=== PATIENT | female | born 1925 | race Caucasian/White ===

== ENCOUNTER 2016-06-18 18:09 | Inpatient (IN) | payer MEDICARE, MEDICAID ==
[~2016-06-18] VITALS: Ht 147.3 cm; Wt 45.4 kg
[2016-06-18] MEDS ORDERED: IV NS 0.9% 500 ML BAG IV ONE ×2 (18:30→20:00)
[2016-06-18] MEDS ORDERED: IV SET PRIMARY 1 EA INFUS.SET MC ONE ×3 (18:43→21:40)
[2016-06-18] MEDS ORDERED: IV NS 0.9% 500 ML IV ONE ×3 (18:43→21:40)
[2016-06-18 18:51] LABS: BASOPHILS # (AUTO) 0.3 /CMM (0.0-0.2); BASOPHILS % (AUTO) 1.7 % (0.0-2.0); EOSINOPHILS % (AUTO) 0.1 % (0.0-6.0); HEMATOCRIT 40 % (33-45); HEMOGLOBIN 13.5 g/dL (11.5-14.8); LYMPHOCYTES # (AUTO) 0.4 /CMM (0.8-4.8); LYMPHOCYTES % (AUTO) 2.8 % (20.0-44.0); MEAN CORPUSCULAR HEMOGLOBIN 30 PG (26.0-33.0); MEAN CORPUSCULAR HGB CONC 34 g/dl (31.0-36.0); MEAN CORPUSCULAR VOLUME 89 fL (82-100); MONOCYTES # (AUTO) 0.4 /CMM (0.1-1.30); MONOCYTES % (AUTO) 2.7 % (2.0-12.0); NEUTROPHILS # (AUTO) 13.6 /CMM (1.8-8.9); NEUTROPHILS % (AUTO) 92.7 % (43.0-81.0); PLATELET COUNT (AUTO) 101 /CMM (150-450); RDW COEFFICIENT OF VARIATION 13.8 (11.5-15.0); RED BLOOD CELL COUNT(AUTO) 4.53 MIL/uL (4.0-5.2); WHITE BLOOD COUNT (AUTO) 14.7 K/uL (4.3-11.0)
[2016-06-18] MEDS ORDERED: DOCU-170 PO (19:00)
[2016-06-18] MEDS ORDERED: QUET25TA PO (19:00)
[2016-06-18] MEDS ORDERED: LACT1CAP61 PO (19:00)
[2016-06-18] MEDS ORDERED: INSU300I SQ (19:00)
[2016-06-18] MEDS ORDERED: LORA-258 PO (19:00)
[2016-06-18] MEDS ORDERED: INSU100V3 SQ (19:00)
[2016-06-18] MEDS ORDERED: ASPI81TA2 PO (19:00)
[2016-06-18] MEDS ORDERED: METF500T4 PO (19:00)
[2016-06-18] MEDS ORDERED: ACET-868 PO (19:00)
[2016-06-18] MEDS ORDERED: MEMA5TAB PO (19:00)
[2016-06-18] MEDS ORDERED: CHOL100062 PO (19:00)
[2016-06-18] MEDS ORDERED: MULT1TAB11 PO (19:00)
[2016-06-18 19:01] LABS: CALCIUM, SERUM 9.3 mg/dL (8.5-10.1); CARBON DIOXIDE 27 mmol/L (21-32); CHLORIDE 95 mmol/L (98-107); CREATININE 1.6 mg/dL (0.6-1.3); GLUCOSE 301 mg/dL (74-106); POTASSIUM 3.5 mmol/L (3.5-5.1); SODIUM SERUM 131 mmol/L (136-145); UREA NITROGEN, BLOOD 53 mg/dL (7-18)
[2016-06-18 19:05] LABS: INR 1.04 (0.87-1.13); PROTHROMBIN TIME 10.8 SECS (9.5-12.7)
[2016-06-18 19:07] LABS: ALANINE AMINOTRANSFERASE 13 U/L (12-78); ALBUMIN 2.8 g/dL (3.4-5.0); ALKALINE PHOSPHATASE 150 U/L (46-116); ASPARTATE AMINOTRANSFERASE 21 U/L (15-37); BILIRUBIN,DIRECT 0.3 mg/dL (0.0-0.2); LIPASE 35 U/L (73-393); TOTAL PROTEIN, SERUM 7.5 g/dL (6.4-8.2)
[2016-06-18 19:09] LABS: TROPONIN I < 0.017 ng/mL (0.00-0.056)
--- NOTE | 2016-06-18 19:23 | NUR ---
PT REPORT RECIVED FROM DINORA AGUILAR, PT IS IN BED ON MONITOR, IN NO APPARENT DISTRESS, MD MADE AWARE WILL CONTINUE TO MONITOR.
--- NOTE | 2016-06-18 19:50 | NUR ---
PT CAN NOT STOP SHACKING FOR CT SCAN, ER WILL CALL.
[2016-06-18] MEDS ORDERED: CEFTRIAXONE 1GM BAG (ER ONLY) 50 ML IV ONE (19:57)
[2016-06-18 20:18] LABS: APPEARANCE,URINE Cloudy (CLEAR); BLOOD, URINE Moderate Ery/uL (NEGATIVE); COLOR,URINE Yellow (YELLOW); KETONES,URINE Trace (NEGATIVE); LEUKOCYTE ESTERASE ,URINE Small (NEGATIVE); NITRITE, URINE Negative (NEGATIVE); PROTEIN,URINE 100 mg/dl (NEGATIVE); UGLUCOSE Negative (NEGATIVE); UROBILINOGEN,URINE 0.2 EU/dL (0.2)
[2016-06-18] MEDS ORDERED: ONDANSETRON HCL/PF 4 MG/2 ML VIAL IVP PRN (20:30)
[2016-06-18] MEDS ORDERED: LORAZEPAM 0.5 MG TABLET PO PRN (20:30)
[2016-06-18] MEDS: CEFTRIAXONE 1 G in IV D5W 50 ML IV SCH (20:30)
[2016-06-18] MEDS ORDERED: ZOLPIDEM TARTRATE 5 MG TABLET PO PRN (20:30)
[2016-06-18] MEDS ORDERED: MAG HYDROX/AL HYDROX/SIMETH 30 ML UDC PO PRN (20:30)
[2016-06-18] MEDS ORDERED: ACETAMINOPHEN 325 MG TABLET PO PRN (20:30)
[2016-06-18] MEDS ORDERED: DEXTROSE 50%-WATER 50 ML DISP.SYRIN IV PRN (20:30)
[2016-06-18] MEDS ORDERED: HYDROCODONE/APAP 5/325MG 1 EACH TABLET PO PRN (20:30)
[2016-06-18] MEDS ORDERED: MAGNESIUM HYDROXIDE 30 ML UDC PO PRN (20:30)
[2016-06-18] MEDS ORDERED: IV NS 0.9% 1,000 ML BAG IV ONE (21:00)
[2016-06-18 21:01] LABS: BILIRUBIN,URINE SMALL (NEGATIVE)
[2016-06-18 21:05] LABS: ADD URINE CULTURE YES; BACTERIA,URINE Many /HPF (None Seen); MUCUS,URINE Few /LPF (None Seen); SQUAMOUS EPITHELIAL CELL,UR Few /HPF (None Seen); WBC,URINE 81-100 /HPF (0-3)
[2016-06-18 21:45] VITALS: BP 103/54
[2016-06-18] MEDS: QUETIAPINE FUMARATE 25 MG TABLET PO SCH (22:00)
--- NOTE | 2016-06-18 22:00 | NUR ---
MS RN NOTE PATIENT RECEIVED VIA [facility] FROM ER. NO S/S OF PAIN OR DISTRESS NOTED. FAMILY AT BEDSIDE. PATIENT IS NON-VERBAL. A/O X0. ORIENTED FAMILY TO UNIT. ALL BELONGINGS CHECKED AND ACCOUNTED FOR. SKIN CHECK, DONE. PICTURES TAKEN AND PLACED IN CHART. BED LOCKED AND IN LOWEST POSITION. SIDE RAILS UP, CALL LIGHT WITHIN REACH. WILL CONTINUE TO MONITOR.
--- NOTE | 2016-06-18 22:00 | NUR ---
MS RN NOTE SEROQUEL HELD PER FAMILY'S REQUEST. PATIENT HAVING DIFFICULTY SWALLOWING AT THIS TIME. AWARE.
[2016-06-18 22:02] LABS: LACTIC ACID 2.3 mmol/L (0.4-2.0)
[2016-06-18] MEDS ORDERED: IV SET PRIMARY PUMP SET 1 EA INFUS.SET MC ONE (22:04)
[2016-06-18] MEDS ORDERED: ACETAMINOPHEN 650 MG/SUPP.RECT RC ONE (22:42)
[2016-06-18] MEDS: BLOOD SUGAR DIAGNOSTIC 1 EACH STRIP VI SCH (22:47)
[2016-06-18] MEDS: ACETAMINOPHEN 650 MG/SUPP.RECT RC PRN (22:47)
[2016-06-18 23:00] VITALS: BP 103/54
[2016-06-18] MEDS: *INSULIN REGULAR(HUMULIN R)HUM 100 UNIT/ML VIAL SQ PRN (23:00)
[2016-06-18] MEDS ORDERED: IV NS 0.9% 1,000 ML ONE (23:46)
[2016-06-18] MEDS: IV NS 0.9% 1,000 ML IV PRN (23:49)
[2016-06-19] MEDS ORDERED: ACETAMINOPHEN 650 MG/SUPP.RECT RC ONE (05:41)
[2016-06-19] MEDS: ACETAMINOPHEN 650 MG/SUPP.RECT RC PRN ×2 (06:01→15:18)
[2016-06-19] MEDS: INSULIN REGULAR, HUMAN 100 UNIT/ML 3 ML VIAL SQ PRN ×3 (06:04→16:48)
--- NOTE | 2016-06-19 06:51 | NUR ---
MS RN NOTE PATIENT STABLE. BLOOD SUGAR 145. 2 UNITS GIVEN. TYLENOL 650 MG SUPPOSITORY GIVEN PER FAMILY'S REQUEST FOR MILD PAIN OF THE KNEES. WILL ENDORSE TO DAY SHIFT FOR TIERRA.
--- NOTE | 2016-06-19 07:00 | NUR ---
MS RN INITIAL NOTES REPORT RECEIVED AT THE BEDSIDE. PATIENT IS SLEEPING. NO SOB OR DISTRESS NOTED AT THIS TIME. PATIENT DOES NOT APPEAR TO BE IN PAIN, NO FACIAL GRIMACE NOTED. BED IN A LOW POSITION, CALL LIGHT WITHIN PATIENT REACH, GRANDSON IS AT THE BEDSIDE. WILL CONTINUE TO MONITOR.
[2016-06-19 07:03] LABS: HEMATOCRIT 39 % (33-45); HEMOGLOBIN 12.9 g/dL (11.5-14.8); LYMPHOCYTES # (AUTO) 0.4 /CMM (0.8-4.8); MEAN CORPUSCULAR HEMOGLOBIN 30 PG (26.0-33.0); MEAN CORPUSCULAR HGB CONC 33 g/dl (31.0-36.0); MEAN CORPUSCULAR VOLUME 89 fL (82-100); MONOCYTES # (AUTO) 0.3 /CMM (0.1-1.30); MONOCYTES % (AUTO) 2.1 % (2.0-12.0); NEUTROPHILS # (AUTO) 11.6 /CMM (1.8-8.9); NEUTROPHILS % (AUTO) 94.9 % (43.0-81.0); PLATELET COUNT (AUTO) 124 /CMM (150-450); RDW COEFFICIENT OF VARIATION 14.7 (11.5-15.0); RED BLOOD CELL COUNT(AUTO) 4.36 MIL/uL (4.0-5.2); WHITE BLOOD COUNT (AUTO) 12.2 K/uL (4.3-11.0)
[2016-06-19 07:13] LABS: CALCIUM, SERUM 8.8 mg/dL (8.5-10.1); CREATININE 1.1 mg/dL (0.6-1.3); MAGNESIUM 1.7 mg/dL (1.8-2.4); PHOSPHORUS 2.1 mg/dL (2.5-4.9); POTASSIUM 3.5 mmol/L (3.5-5.1)
[2016-06-19] MEDS: PANTOPRAZOLE 40 MG TABLET.DR PO SCH (07:30)
[2016-06-19 08:00] VITALS: BP 120/77
--- NOTE | 2016-06-19 08:00 | NUR ---
MS RN NOTES PATIENT HAS ELEVATED TEMP OF 100.6. RECTAL TYLENOL WAS ALREADY GIVEN AT 0600. IMPLEMENTED COOLING MEASURES FOR PATIENT.
[2016-06-19] MEDS: MULTIVIT, IRON, MIN NO. 8, FA 1 TAB TABLET PO SCH (08:24)
[2016-06-19] MEDS: ACIDOPHILUS/BULGARICUS 1 EACH TAB.CHEW PO SCH (08:24)
[2016-06-19] MEDS: ASPIRIN 81 MG TAB.CHEW PO SCH (08:24)
[2016-06-19] MEDS: DOCUSATE SODIUM 100 MG CAPSULE PO SCH (08:24)
[2016-06-19] MEDS: MEMANTINE HCL 5 MG TABLET PO SCH ×2 (08:24→16:47)
[2016-06-19] MEDS: CHOLECALCIFEROL 1,000 UNIT TABLET (VIT D3) PO SCH (08:25)
--- NOTE | 2016-06-19 08:25 | NUR ---
MS RN NOTES PATIENT IS NOT TOLERATING PO INTAKE AT THIS TIME. UNABLE TO ADMINISTER ORAL MEDS SAFELY.
[2016-06-19] MEDS: BLOOD SUGAR DIAGNOSTIC 1 EACH STRIP VI SCH ×5 (08:27→22:00)
--- NOTE | 2016-06-19 08:54 | NUR ---
WOUND CARE CONSULT: PATIENT SEEN AND SKIN ASSESSMENT DONE. PATIENT IMMOBILE, INCONTINENT, ITALO 11, ON ROLAN ISOFLEX DEION BED. SEE TODAY'S SKIN ASSESSMENT IN PCS ALONG WITH RECOMMENDATIONS. RECOMMEND SKIN/MOISTURE PROTECTION AND PRESSURE PREVENTION MEASURES ORDERED. ALL DISCUSSED WITH NURSING STAFF. MD IN AGREEMENT WITH PLAN OF CARE. Addendum: 06/19/16 at 0856 by BLAS KING WNDNU Amended: Links added.
[2016-06-19] MEDS: UREA 10% -AHA 4% CREAM 57 GM TUBE TP SCH ×2 (09:23→16:50)
[2016-06-19] MEDS: Z GUARD REMEDY 2 OZ OINT TP PRN (09:23)
--- NOTE | 2016-06-19 10:54 | NUR ---
MS RN NOTES FAMILY INFORMS THAT THE PATIENT IS HAVING CHRONIC LOWER LEG PAIN AND STATES THAT THE PATIENT USES A CREAM AT HOME SIMILAR TO A LIDOCAINE. INFORMED DR ADKINS WHO ORDERED NEURONTIN [address] ORDERS.
[2016-06-19 11:41] LABS: BAND % (MANUAL) 5 % (0.0-5.0); LYMPHOCYTES % (MANUAL) 3 % (16-48); MONOCYTES % (MANUAL) 3 % (0-11.0); NEUTROPHILS % (MANUAL) 89 (42-76)
[2016-06-19 11:42] LABS: PLATELET ESTIMATE ADEQUATE
[2016-06-19] MEDS ORDERED: SECONDARY IV SET 1 EA INFUS.SET MC ONE ×3 (12:03→17:59)
[2016-06-19] MEDS: Magnesium 1GM/D5W 100ML PREMIX 100 ML IV SCH ×2 (12:11→13:35)
[2016-06-19] MEDS: IV NS 0.9% 1,000 ML IV PRN (12:11)
[2016-06-19] MEDS: GABAPENTIN 100 MG CAPSULE PO SCH ×2 (12:11→16:47)
[2016-06-19] MEDS: ENOXAPARIN SODIUM 30 MG/0.3 ML DISP.SYRIN SQ SCH (13:35)
[2016-06-19] MEDS ORDERED: Sodium Phosphate 15 MMOL in IV D5W 250 ML IV ONE (15:30)
[2016-06-19 16:00] VITALS: BP 110/55
--- NOTE | 2016-06-19 17:58 | NUR ---
MS RN NOTES UNABLE TO PREFORM ORTHOSTATIC VITALS AT THIS TIME. PATIENT DOES NOT WANT TO GET OUT OF BED. IN LAO, STATES "NOT NOW, GO." WILL ATTEMPT AGAIN LATER.
--- NOTE | 2016-06-19 18:27 | NUR ---
MS RN NOTES EARLIER HAD REPORTED FROM ANOTHER NURSE PATIENT WAS POSITIVE FOR GRAM NEGATIVE RODS. WAS MISTAKEN ON PATIENT ROOM NUMBER AND INFORMED MD ABOUT WRONG PATIENT. CALLED [facility] FOR DR ADKINS TO REPORT BLOOD CULTURES ON THE PATIENT. AWAITING RETURN CALL.
[2016-06-19] MEDS: CEFTRIAXONE 1 G in IV D5W 50 ML IV SCH (18:32)
--- NOTE | 2016-06-19 19:01 | NUR ---
MS RN NOTES RECEIVED RETURN CALL FROM DR ADKINS. INFORMED MD ABOUT GRAM NEGATIVE RODS IN BLOOD CULTURES. MD STATES NO NEED TO CHANGE MEDICATIONS AT THIS TIME AND ASKS TO HAVE A REPEAT BLOOD CULTURE PLACED IN THE MORNING. WILL CARRY OUT ORDERS.
--- NOTE | 2016-06-19 19:03 | NUR ---
MS RN NOTES NO SIGNIFICANT CHANGES IN PATIENT CONDITION THROUGHOUT THE SHIFT. NO SOB OR DISTRESS NOTED AT THIS TIME. PATIENT DOES NOT APPEAR TO BE IN PAIN. BED IN A LOW POSITION, CALL LIGHT WITHIN PATIENT REACH. WILL ENDORSE FOR TIERRA.
--- NOTE | 2016-06-19 19:30 | NUR ---
MS RN NOTE RECEIVED PATIENT ASLEEP IN BED. EASILY AROUSABLE BY TOUCH. NO S/S OF PAIN OR DISCOMFORT. NO RESPIRATORY DISTRESS. IV SITE INTACT WITH FLUIDS RUNNING ORDERED. BED LOCKED AND IN LOWEST POSITION. SIDE RAILS UP, CALL LIGHT WITHIN REACH. WILL CONTINUE TO MONITOR.
[2016-06-19 20:00] VITALS: BP 106/51
[2016-06-19 20:45] VITALS: BP 106/51
[2016-06-19] MEDS: QUETIAPINE FUMARATE 25 MG TABLET PO SCH (21:50)
[2016-06-19] MEDS ORDERED: ENOXAPARIN SODIUM 40 MG/0.4 ML DISP.SYRIN SQ SCH (22:00)
--- NOTE | 2016-06-19 22:00 | NUR ---
MS RN NOTE PATIENT REFUSED ACCUCHECK. TRIED TO PROVIDE TEACHING. REINFORCEMENT NEEDED. NO S/S OF HYPER/HYPOGLYCEMIA. WILL CONTINUE TO MONITOR.
--- NOTE | 2016-06-20 06:01 | NUR ---
MS RN NOTE PATIENT STABLE. NO S/S OF PAIN OR DISCOMFORT. KEPT CLEAN, DRY AND COMFORTABLE. BLOOD SUGAR 189. COVERAGE GIVEN PER SLIDING SCALE. WILL ENDORSE TO DAY SHIFT FOR TIERRA.
[2016-06-20] MEDS: ACETAMINOPHEN 650 MG/SUPP.RECT RC PRN (06:31)
[2016-06-20] MEDS: IV NS 0.9% 1,000 ML IV PRN (06:31)
[2016-06-20] MEDS: PANTOPRAZOLE 40 MG TABLET.DR PO SCH (06:32)
[2016-06-20] MEDS: BLOOD SUGAR DIAGNOSTIC 1 EACH STRIP VI SCH ×4 (06:32→21:58)
[2016-06-20] MEDS: INSULIN REGULAR, HUMAN 100 UNIT/ML 3 ML VIAL SQ PRN ×3 (06:32→17:41)
[2016-06-20 06:46] LABS: HEMATOCRIT 36 % (33-45); HEMOGLOBIN 12.2 g/dL (11.5-14.8); LYMPHOCYTES # (AUTO) 0.4 /CMM (0.8-4.8); LYMPHOCYTES % (AUTO) 4.7 % (20.0-44.0); MEAN CORPUSCULAR HEMOGLOBIN 30 PG (26.0-33.0); MEAN CORPUSCULAR HGB CONC 34 g/dl (31.0-36.0); MEAN CORPUSCULAR VOLUME 88 fL (82-100); MONOCYTES # (AUTO) 0.6 /CMM (0.1-1.30); MONOCYTES % (AUTO) 6.9 % (2.0-12.0); NEUTROPHILS # (AUTO) 7.8 /CMM (1.8-8.9); NEUTROPHILS % (AUTO) 88.4 % (43.0-81.0); PLATELET COUNT (AUTO) 91 /CMM (150-450); RDW COEFFICIENT OF VARIATION 14.7 (11.5-15.0); WHITE BLOOD COUNT (AUTO) 8.8 K/uL (4.3-11.0)
[2016-06-20 07:17] LABS: CALCIUM, SERUM 8.3 mg/dL (8.5-10.1); CREATININE 0.8 mg/dL (0.6-1.3); PHOSPHORUS 1.6 mg/dL (2.5-4.9); POTASSIUM 2.9 mmol/L (3.5-5.1)
[2016-06-20 08:00] VITALS: BP 117/66
--- NOTE | 2016-06-20 08:20 | NUR ---
MS RN RECEIVED ON BED, SLEEPING, BARELY AWAKE IF CALLED, PATIENT IS NON VERBAL, NOT IN ANY FORM O DISTRESS, RESPIRATIONS EVEN AND UNLABORED,NO SOB NOTED. PATIENT DOES NOT WANT TO TAKE MEDS OF GENERAL INTERNAL MEDICINE DOCTOR.
[2016-06-20 08:55] LABS: BAND % (MANUAL) 8 % (0.0-5.0); LYMPHOCYTES % (MANUAL) 4 % (16-48); MONOCYTES % (MANUAL) 5 % (0-11.0); NEUTROPHILS % (MANUAL) 83 (42-76)
[2016-06-20 08:56] LABS: ANISOCYTOSIS 1+; PLATELET ESTIMATE DECREASED
[2016-06-20] MEDS: ASPIRIN 81 MG TAB.CHEW PO SCH (09:30)
[2016-06-20] MEDS: GABAPENTIN 100 MG CAPSULE PO SCH ×3 (09:30→17:21)
[2016-06-20] MEDS: ACIDOPHILUS/BULGARICUS 1 EACH TAB.CHEW PO SCH (09:30)
[2016-06-20] MEDS: MULTIVIT, IRON, MIN NO. 8, FA 1 TAB TABLET PO SCH (09:30)
[2016-06-20] MEDS: CHOLECALCIFEROL 1,000 UNIT TABLET (VIT D3) PO SCH (09:30)
[2016-06-20] MEDS: DOCUSATE SODIUM 100 MG CAPSULE PO SCH (09:30)
[2016-06-20] MEDS: MEMANTINE HCL 5 MG TABLET PO SCH ×2 (09:30→17:20)
--- NOTE | 2016-06-20 09:30 | NUR ---
MS RN DAUGHTER HERE, WAS ABLE TO TAKE MEDS , CRUST W/ APPLE SAUCE OTHER BEVERLY, REFUSED FOOD.SPOKE TO DAUGHTER TO BE HERE DURING EATING TIME.
[2016-06-20] MEDS: UREA 10% -AHA 4% CREAM 57 GM TUBE TP SCH ×2 (09:31→17:22)
[2016-06-20] MEDS ORDERED: POTASSIUM PHOSPHATE MM 15 MMOL in IV D5W 250 ML IV SCH (10:00)
[2016-06-20] MEDS: POTASSIUM PHOSPHATE MM 7.5 MMOL in IV D5W 100 ML IV SCH ×2 (11:41→14:59)
[2016-06-20] MEDS: ENOXAPARIN SODIUM 30 MG/0.3 ML DISP.SYRIN SQ SCH (12:20)
[2016-06-20] MEDS ORDERED: POTASSIUM CHLORIDE 20 MEQ TAB.PRT.SR PO ONE (12:30)
[2016-06-20] MEDS ORDERED: POTASSIUM CHLORIDE 10 MEQ TABLET.SA PO ONE (12:30)
[2016-06-20 16:00] VITALS: BP 115/63
--- NOTE | 2016-06-20 17:30 | NUR ---
MS RN BS -93 -3 UNITS OF REGULAR INSULIN GIVEN, FAMILY AT BEDSIDE, NO CHANGE OF CONDITION.
--- NOTE | 2016-06-20 19:20 | NUR ---
MS RN NOTES RECEIVED PT IN BED, AWAKE AND VERBALLY RESPONSIVE, SIERRA LEONEAN SPEAKING. DAUGHTER AND GRAND DAUGHTER AT BEDSIDE. NO ACUTE DISTRESS, NO SOB NOTED. RESPIRATION IS EVEN AND UNLABORED. IV SITE ON RAC #18G INTACT AND PATENT. NO S/S OF INFILTRATION NOTED. IVF INFUSING WELL. ALL NEEDS ATTENDED AND MET. KEPT COMFORTABLE. SAFETY PRECAUTIONS OBSERVED. CALL LIGHT WITHIN REACH. WILL CONT TO MONITOR.
[2016-06-20 20:00] VITALS: BP 127/72
[2016-06-20] MEDS: CEFTRIAXONE 1 G in IV D5W 50 ML IV SCH (20:43)
[2016-06-20] MEDS: QUETIAPINE FUMARATE 25 MG TABLET PO SCH (21:46)
[2016-06-20] MEDS: *INSULIN REGULAR(HUMULIN R)HUM 100 UNIT/ML VIAL SQ PRN (22:03)
[2016-06-21] MEDS: IV NS 0.9% 1,000 ML IV PRN (04:05)
[2016-06-21] MEDS: BLOOD SUGAR DIAGNOSTIC 1 EACH STRIP VI SCH ×4 (05:53→21:34)
--- NOTE | 2016-06-21 06:20 | NUR ---
MS RN NOTES PT IN BED,RESTING COMFORTABLY. AROUSES EASILY. NO ACUTE DISTRESS, NO SOB NOTED. RESPIRATION IS EVEN AND UNLABORED. IV SITE ON RAC #18G INTACT AND PATENT. NO S/S OF INFILTRATION NOTED. IVF INFUSING WELL. GOOD ISHMAEL CARE AND SKIN CARE RENDERED. REPOSITIONED Q2H. ALL NEEDS ATTENDED AND MET. ASPIRATION PRECAUTION OBSERVED. KEPT HOB ELEVATED. KEPT COMFORTABLE. SAFETY PRECAUTIONS OBSERVED. CALL LIGHT WITHIN REACH. WILL ENDORSE TO NEXT SHIFT FOR TIERRA.
[2016-06-21] MEDS: INSULIN REGULAR, HUMAN 100 UNIT/ML 3 ML VIAL SQ PRN ×2 (06:39→18:12)
[2016-06-21] MEDS: PANTOPRAZOLE 40 MG TABLET.DR PO SCH (07:30)
[2016-06-21 07:33] LABS: CALCIUM, SERUM 8.1 mg/dL (8.5-10.1); CREATININE 0.7 mg/dL (0.6-1.3); POTASSIUM 3.3 mmol/L (3.5-5.1)
--- NOTE | 2016-06-21 07:40 | NUR ---
RN AM NOTES PATIENT IN BED, ASLEEP, BUT AROUSABLE. KYRGYZ SPEAKING ONLY. NO SOB, PAIN OR DISTRESS NOTED. WILL CONTINUE TO MONITOR.
[2016-06-21 08:00] VITALS: BP 118/72
[2016-06-21] MEDS: GABAPENTIN 100 MG CAPSULE PO SCH ×3 (08:28→17:00)
[2016-06-21] MEDS: ASPIRIN 81 MG TAB.CHEW PO SCH ×2 (08:28→09:00)
[2016-06-21] MEDS: ACIDOPHILUS/BULGARICUS 1 EACH TAB.CHEW PO SCH ×2 (08:28→09:00)
[2016-06-21] MEDS: MULTIVIT, IRON, MIN NO. 8, FA 1 TAB TABLET PO SCH ×2 (08:28→09:00)
[2016-06-21] MEDS: DOCUSATE SODIUM 100 MG CAPSULE PO SCH ×2 (08:29→09:00)
[2016-06-21] MEDS: MEMANTINE HCL 5 MG TABLET PO SCH (08:29)
[2016-06-21] MEDS: CHOLECALCIFEROL 1,000 UNIT TABLET (VIT D3) PO SCH ×2 (08:29→09:00)
[2016-06-21] MEDS: UREA 10% -AHA 4% CREAM 57 GM TUBE TP SCH ×2 (08:30→17:00)
[2016-06-21] MEDS: Z GUARD REMEDY 2 OZ OINT TP PRN (08:30)
[2016-06-21] MEDS ORDERED: POTASSIUM CHLORIDE 20 MEQ TAB.PRT.SR PO ONE (10:30)
[2016-06-21] MEDS ORDERED: MEROPENEM 500 MG in IV NS 0.9% 50 ML IV SCH (11:00)
[2016-06-21] MEDS: MEROPENEM 500 MG in IV NS 0.9% 50 ML IV SCH ×2 (12:11→23:57)
[2016-06-21] MEDS: CLOTRIMAZOLE 1% 15 GM TUBE TP SCH ×2 (12:20→17:00)
[2016-06-21] MEDS: ENOXAPARIN SODIUM 30 MG/0.3 ML DISP.SYRIN SQ SCH (12:35)
--- NOTE | 2016-06-21 12:35 | NUR ---
ONLY GABAPENTIN AND KDUR GIVEN TO PATIENT PER FAMILY REQUEST. PATIENT WAS NOT EATING UNTIL NOW, SO FAMILY ONLY CONSENTED TO GIVE DRUGS FOR NERVE PAIN AND TO REPLACE POTASSIUM. LOVENOX NOT ADMINISTERED PER FAMILY REQUEST. DISCUSSED RISKS AND BENEFITS WITH DAUGHTER. WILL CONTINUE TO MONITOR. MD AWARE, WITH ORDER TO HOLD PO MEDS UNTIL PATIENT CAN TOLERATE.
--- NOTE | 2016-06-21 12:40 | NUR ---
BLOOD SUGAR= 153, NO INSULIN ADMINISTERED PER FAMILY REQUEST, PATIENT NOT EATING MUCH PO, WILL CONTINUE TO MONITOR. MD SMITH
[2016-06-21 16:00] VITALS: BP 142/77
--- NOTE | 2016-06-21 18:05 | NUR ---
PATIENT BLOOD SUGAR 253, ADMINISTERED 6 UNITS PER SLIDING SCALE. DAUGHTER AT BEDSIDE. CHANGED PIV TO RIGHT FOREARM, PATENT AND IN PLACE WITH GOOD BLOOD RETURN. PATIENT IN STABLE CONDITION, BUT CANNOT TAKE ORTHOSTATIC BP BECAUSE PATIENT CANNOT STAND. LAST BP LYING DOWN WAS 142/77, HR 120. WILL CONTINUE TO MONITOR.
--- NOTE | 2016-06-21 18:18 | NUR ---
RN PM NOTES PATIENT RESTING IN BED, WITH DAUGHTER AT BEDSIDE. CHANGED PIV SITE TO RIGHT FOREARM, INTACT AND PATENT WITH GOOD BLOOD RETURN. PATIENT TOLERATING FLUIDS WELL. NO SOB, S/S OF PAIN OR DISTRESS NOTED. WILL ENDORSE TO NEXT SHIFT.
--- NOTE | 2016-06-21 19:15 | NUR ---
MS RN NOTES RECEIVED PT IN BED WITH DAUGHTER AT BEDSIDE. PT IS RESTING BUT AROUSES EASILY. VERBALLY RESPONSIVE IN BULGARIAN. A/O X1. NO ACUTE DISTRESS NOR SOB NOTED AT THIS TIME. RESPIRATION IS EVEN AND UNLABORED. IV SITE ON RFA G22 INTACT AND PATENT. NO S/S OF INFILTRATION NOTED. IVF INFUSING WELL. ALL NEEDS ATTENDED AND MET. KEPT COMFORTABLE. CALL LIGHT WITHIN REACH. WILL CONT TO MONITOR.
[2016-06-21 20:00] VITALS: BP 140/73
[2016-06-21 20:04] VITALS: BP 150/73
[2016-06-21] MEDS: *INSULIN REGULAR(HUMULIN R)HUM 100 UNIT/ML VIAL SQ PRN (21:44)
[2016-06-21] MEDS ORDERED: SECONDARY IV SET 1 EA INFUS.SET MC ONE (23:56)
[2016-06-22] MEDS: IV NS 0.9% 1,000 ML IV PRN ×2 (06:35→22:44)
[2016-06-22] MEDS: INSULIN REGULAR, HUMAN 100 UNIT/ML 3 ML VIAL SQ PRN ×2 (06:41→12:38)
[2016-06-22] MEDS: BLOOD SUGAR DIAGNOSTIC 1 EACH STRIP VI SCH ×4 (06:46→22:48)
--- NOTE | 2016-06-22 06:54 | NUR ---
MS RN NOTE PT IN BED RESTING COMFORTABLY BUT AROUSES EASILY. VERBALLY RESPONSIVE IN NEPALI. A/O X1. NO ACUTE DISTRESS NOR SOB NOTED AT THIS TIME. RESPIRATION IS EVEN AND UNLABORED. IV SITE ON RFA G22 INTACT AND PATENT. NO S/S OF INFILTRATION NOTED. IVF INFUSING WELL. VOIDING FREELY WITH YELLOW URINE NO HEMATURIA NOTED. REPOSITIONED Q 2H . ALL NEEDS ATTENDED AND MET. KEPT COMFORTABLE. CALL LIGHT WITHIN REACH. WILL ENDORSE TO NEXT SHIFT FOR TIERRA
--- NOTE | 2016-06-22 07:30 | NUR ---
RN AM NOTES PATIENT IN BED ASLEEP, BUT AROUSABLE. ABLE TO EAT SMALL SPOONFULS OF FOOD INTERMITTENTLY. SAFE, WITH NO FURTHER SKIN TEARS. WILL CONTINUE TO MONITOR.
[2016-06-22 07:40] LABS: CALCIUM, SERUM 7.9 mg/dL (8.5-10.1); CREATININE 0.7 mg/dL (0.6-1.3); POTASSIUM 3.6 mmol/L (3.5-5.1)
[2016-06-22 08:00] VITALS: BP 139/76
[2016-06-22] MEDS: GABAPENTIN 100 MG CAPSULE PO SCH ×3 (08:40→16:56)
[2016-06-22] MEDS: PANTOPRAZOLE 40 MG TABLET.DR PO SCH (08:41)
[2016-06-22] MEDS: UREA 10% -AHA 4% CREAM 57 GM TUBE TP SCH ×2 (09:08→17:23)
[2016-06-22] MEDS: CLOTRIMAZOLE 1% 15 GM TUBE TP SCH ×2 (09:08→17:23)
[2016-06-22] MEDS: Z GUARD REMEDY 2 OZ OINT TP PRN ×2 (09:09→17:23)
[2016-06-22] MEDS: MEROPENEM 500 MG in IV NS 0.9% 50 ML IV SCH (12:33)
[2016-06-22] MEDS: ENOXAPARIN SODIUM 30 MG/0.3 ML DISP.SYRIN SQ SCH (13:45)
--- NOTE | 2016-06-22 14:34 | NUR ---
ADEOLA met with pt's RN Aleksandra regarding pt's caregiver wanting some information on a support group for caregivers. ADEOLA gave MedSurg Charge Nurse Maritza the flyer for caregiver support group that is held on the of every month at [facility] room at 5PM.
[2016-06-22 16:00] VITALS: BP 144/87
[2016-06-22] MEDS: BOOST PLUS FOOD-VANILLA 237 ML BOX PO SCH (16:55)
[2016-06-22] MEDS: *INSULIN REGULAR(HUMULIN R)HUM 100 UNIT/ML VIAL SQ PRN ×2 (17:06→22:51)
--- NOTE | 2016-06-22 17:12 | NUR ---
BLOOD YCXWY=280, ADMINISTERED 4 UNITS PER SLIDING SCALE, GLUCOMETER TURNED OFF TOO FAST TO MAKE COMMENT
--- NOTE | 2016-06-22 17:13 | NUR ---
GAVE FAMILY MEMBER INFORMATION ABOUT SUPPORT GROUP FOR FAMILY CAREGIVERS. ALSO PUT THE ORIGINAL IN PATIENT'S CHART TO BE AVAILABLE FOR ALL OTHER FAMILY MEMBERS WHO WANT A COPY.
--- NOTE | 2016-06-22 17:37 | NUR ---
ORTHOSTATIC BP NOT TAKEN; PATIENT CANNOT TOLERATE SITTING UPRIGHT FOR MEASUREMENT. CANNOT STAND UP. WILL CONTINUE TO MONITOR
--- NOTE | 2016-06-22 18:16 | NUR ---
RN PM NOTES PATIENT RESTING COMFORTABLY IN BED, WITH GRANDSON AT BEDSIDE. ABLE TO EAT A LITTLE MORE THIS EVENING AND CONSUME EVENING MEDS. PIV INTACT AND PATENT, PATIENT TOLERATING FLUIDS WELL. NO SOB, DISTRESS OR COMPLAINTS OF PAIN. PATIENT SP O2 95%-97 ON RA. WILL ENDORSE TO NEXT SHIFT.
--- NOTE | 2016-06-22 19:20 | NUR ---
MS RN NOTES RECEIVED PT IN BED, ASLEEP AT THIS TIME, AROUSES EASILY. GRANDSON ( KIRTI ) AT BED SIDE. PT IS NOT IN DISTRESS, NO SOB. RESPIRATION IS UNLABORED. IV SITE ON RFA G# 22 INTACT AND PATENT. IVF INFUSING WELL. NO S/S OF HYPOGLYCEMIA/ HYPERGLYCEMIA NOTED. NO C/O PAIN OR DISCOMFORT AT THIS TIME. ALL NEEDS ATTENDED AND MET. KEPT CLEAN , DRY AND COMFORTABLE. AFEBRILE. CALL LIGHT WITHIN REACH. SAFETY PRECAUTIONS OBSERVED. WILL CONTINUE TO MONITOR.
[2016-06-22 20:00] VITALS: BP 137/61
[2016-06-22] MEDS ORDERED: INSULIN DETEMIR 100 UNIT/ML CARTRIDGE SQ SCH (22:00)
[2016-06-23] MEDS: MEROPENEM 500 MG in IV NS 0.9% 50 ML IV SCH ×2 (00:36→12:16)
--- NOTE | 2016-06-23 03:30 | NUR ---
PT PULLED OUT IV ON RIGHT FOREARM . NO BLEEDING NOTED. INSERTED IV ON RIGHT FOREARM , X 1 ATTEMPT , WITH GOOD VENOUS RETURN. PT LARRY WELL.
[2016-06-23] MEDS: INSULIN REGULAR, HUMAN 100 UNIT/ML 3 ML VIAL SQ PRN ×2 (06:36→12:17)
--- NOTE | 2016-06-23 06:44 | NUR ---
MS RN NOTES PT IN BED, RESTING COMFORTABLY AT THIS TIME, AROUSES EASILY. PT IS NOT IN DISTRESS, NO SOB. RESPIRATION IS UNLABORED. IV SITE ON RFA G# 22 INTACT AND PATENT. IVF INFUSING WELL. NO S/S OF HYPOGLYCEMIA/ HYPERGLYCEMIA NOTED. NO C/O PAIN OR DISCOMFORT AT THIS TIME. VOIDING FREELY WITH YELLOW URINE. NO HEMATURIA NOTED. ALL NEEDS ATTENDED AND MET. KEPT CLEAN , DRY AND COMFORTABLE. AFEBRILE. CALL LIGHT WITHIN REACH. SAFETY PRECAUTIONS OBSERVED. WILL ENDORSE TO NEXT SHIFT FOR TIERRA.
[2016-06-23 06:52] LABS: CALCIUM, SERUM 7.9 mg/dL (8.5-10.1); CREATININE 0.6 mg/dL (0.6-1.3); POTASSIUM 3.3 mmol/L (3.5-5.1)
--- NOTE | 2016-06-23 07:24 | NUR ---
AM RN NOTE Received patient sleeping comfortably in her bed but arouses upon touch. No SOB noted resp even and non-labored. Skin W/D to touch. IV site intact and patent. Bed in low locked position. Will continue to monitor.
[2016-06-23] MEDS: BLOOD SUGAR DIAGNOSTIC 1 EACH STRIP VI SCH ×2 (07:51→12:15)
[2016-06-23 08:00] VITALS: BP 122/61
[2016-06-23] MEDS: MULTIVIT, IRON, MIN NO. 8, FA 1 TAB TABLET PO SCH (08:25)
[2016-06-23] MEDS: GABAPENTIN 100 MG CAPSULE PO SCH ×2 (08:25→12:25)
[2016-06-23] MEDS: ASPIRIN 81 MG TAB.CHEW PO SCH (08:25)
[2016-06-23] MEDS: BOOST PLUS FOOD-VANILLA 237 ML BOX PO SCH (08:25)
[2016-06-23] MEDS: ACIDOPHILUS/BULGARICUS 1 EACH TAB.CHEW PO SCH (08:26)
[2016-06-23] MEDS: CHOLECALCIFEROL 1,000 UNIT TABLET (VIT D3) PO SCH (08:26)
[2016-06-23] MEDS: PANTOPRAZOLE 40 MG TABLET.DR PO SCH (08:26)
[2016-06-23] MEDS: DOCUSATE SODIUM 100 MG CAPSULE PO SCH (08:26)
[2016-06-23] MEDS: CLOTRIMAZOLE 1% 15 GM TUBE TP SCH (08:30)
[2016-06-23] MEDS: UREA 10% -AHA 4% CREAM 57 GM TUBE TP SCH (08:31)
[2016-06-23] MEDS ORDERED: POTASSIUM CHLORIDE 20 MEQ TAB.PRT.SR PO SCH (11:30)
--- NOTE | 2016-06-23 11:30 | NUR ---
RN NOTE Patient accidently pulled IV, re-inserted new site on left hand #22 x1 attempt.
[2016-06-23] MEDS: ENOXAPARIN SODIUM 30 MG/0.3 ML DISP.SYRIN SQ SCH (12:29)
--- NOTE | 2016-06-23 12:30 | NUR ---
RN NOTE Discharge to [facility] order given by Dr. Rodgers. Daughter (Janette) made aware. Called [facility], spoke with Deena AGUILAR report given on patient and made aware about contact isolation. Grand-daughter at bedside. Will continue to monitor.
--- NOTE | 2016-06-23 13:38 | NUR ---
AM RN NOTE Patient awake, A/O X1 family at bedside. Denies any pain. Report given to EMT's. HL and ID band removed. Belongings endorsed. Patient left unit at this time as accompanied by 3 EMT's and family.
== END 2016-06-23 13:40 | DRG 871 ==
LOC: ER 18:15 → MED 20:14
PROVIDERS: ADMIT Internal Medicine; ATTEND Internal Medicine
DX: A41.51 Sepsis due to Escherichia coli [E. coli] (principal); G92 Toxic encephalopathy; E43 Unspecified severe protein-calorie malnutrition; N17.0 Acute kidney failure with tubular necrosis; J69.0 Pneumonitis due to inhalation of food and vomit; N39.0 Urinary tract infection, site not specified; E87.1 Hypo-osmolality and hyponatremia; D69.59 Other secondary thrombocytopenia; Z66 Do not resuscitate; R13.10 Dysphagia, unspecified; B35.1 Tinea unguium; E11.9 Type 2 diabetes mellitus without complications; E86.0 Dehydration; E86.1 Hypovolemia; F41.9 Anxiety disorder, unspecified; Z79.899 Other long term (current) drug therapy; Z87.440 Personal history of urinary (tract) infections; Z83.3 Family history of diabetes mellitus; F32.9 Major depressive disorder, single episode, unspecified; E87.6 Hypokalemia; E88.09 Other disorders of plasma-protein metabolism, not elsewhere classified; M62.50 Muscle wasting and atrophy, not elsewhere classified, unspecified site; L89.151 Pressure ulcer of sacral region, stage 1; L98.9 Disorder of the skin and subcutaneous tissue, unspecified; F01.50 Vascular dementia, unspecified severity, without behavioral disturbance, psychotic disturbance, mood disturbance, and anxiety; Z79.84 Long term (current) use of oral hypoglycemic drugs; Z91.81 History of falling; Z68.20 Body mass index [BMI] 20.0-20.9, adult; R65.20 Severe sepsis without septic shock
CPT/HCPCS: 36415; 70450-TC; 71010-TC; 80048-TC; 80076-TC; 81000-TC; 82962-TC; 83605-TC; 83690-TC; 83735-TC; 84100-TC; 84484-TC; 85025-TC; 85730-TC; 87040-TC; 87081-TC; 87086-TC; 87186-TC; 92611-TC; 97001-TC; 97003-TC; A4216; A4606; A9563; J0696; J1650; J1815; J2185; J3475; J3490; J7030; J7040; J7060; Z7610

== ENCOUNTER 2016-07-27 15:46 | Inpatient (IN) | payer MEDICARE, MEDICAID ==
[~2016-07-27] VITALS: Ht 157.5 cm; Wt 53.5 kg
[~2016-07-27 15:46] MED LIST: ACET-868 PO; ASPI81TA2 PO; CHOL100062 PO; DOCU-170 PO; INSU100V3 SQ; INSU300I SQ; LACT1CAP61 PO; LORA-258 PO; MEMA5TAB PO; METF500T4 PO; MULT1TAB11 PO; QUET25TA PO
--- NOTE | 2016-07-27 16:05 | NUR ---
aaox2, bib private ambulance from snf for psych eval, patient was hitting the staff, uncooperative with her care. skin is warm and dry. resp is even and unlabored with nad noted. Dr Dunlap at BS for eval.
[2016-07-27 16:09] LABS: BASOPHILS % (AUTO) 0.4 % (0.0-2.0); EOSINOPHILS % (AUTO) 0.6 % (0.0-6.0); HEMATOCRIT 36 % (33-45); HEMOGLOBIN 11.7 g/dL (11.5-14.8); LYMPHOCYTES # (AUTO) 1.2 /CMM (0.8-4.8); LYMPHOCYTES % (AUTO) 26.9 % (20.0-44.0); MEAN CORPUSCULAR HEMOGLOBIN 29 PG (26.0-33.0); MEAN CORPUSCULAR HGB CONC 33 g/dl (31.0-36.0); MEAN CORPUSCULAR VOLUME 87 fL (82-100); MONOCYTES # (AUTO) 0.3 /CMM (0.1-1.30); MONOCYTES % (AUTO) 7.1 % (2.0-12.0); NEUTROPHILS # (AUTO) 2.8 /CMM (1.8-8.9); PLATELET COUNT (AUTO) 322 /CMM (150-450); RDW COEFFICIENT OF VARIATION 13.5 (11.5-15.0); RED BLOOD CELL COUNT(AUTO) 4.09 MIL/uL (4.0-5.2); WHITE BLOOD COUNT (AUTO) 4.3 K/uL (4.3-11.0)
[2016-07-27 16:16] LABS: APPEARANCE,URINE Cloudy (CLEAR); BILIRUBIN,URINE Negative (NEGATIVE); BLOOD, URINE Moderate Ery/uL (NEGATIVE); COLOR,URINE Yellow (YELLOW); KETONES,URINE Negative (NEGATIVE); LEUKOCYTE ESTERASE ,URINE Small (NEGATIVE); NITRITE, URINE Positive (NEGATIVE); PH,URINE 5.5 (5.0-8.0); PROTEIN,URINE 30 mg/dl (NEGATIVE)
[2016-07-27 16:18] LABS: UGLUCOSE 500 MG/DL mg/dL (NEGATIVE)
[2016-07-27 16:25] LABS: ALANINE AMINOTRANSFERASE < 6 U/L (12-78); ALBUMIN 2.9 g/dL (3.4-5.0); ALCOHOL, BLOOD < 3 mg/dL (0-0); ALKALINE PHOSPHATASE 110 U/L (46-116); ASPARTATE AMINOTRANSFERASE 15 U/L (15-37); BILIRUBIN,DIRECT 0.1 mg/dL (0.0-0.2); BILIRUBIN,TOTAL 0.5 mg/dL (0.2-1.0); CALCIUM, SERUM 9.2 mg/dL (8.5-10.1); CARBON DIOXIDE 29 mmol/L (21-32); CHLORIDE 103 mmol/L (98-107); CREATININE 0.8 mg/dL (0.6-1.3); POTASSIUM 4.3 mmol/L (3.5-5.1); SODIUM SERUM 138 mmol/L (136-145); TOTAL PROTEIN, SERUM 8.3 g/dL (6.4-8.2); UREA NITROGEN, BLOOD 15 mg/dL (7-18)
[2016-07-27 16:27] LABS: TROPONIN I < 0.017 ng/mL (0.00-0.056)
[2016-07-27 16:33] LABS: GLUCOSE 370 mg/dL (74-106)
[2016-07-27 16:37] LABS: THYROID STIMULATING HORMONE 1.249 uIU/mL (0.358-3.74)
[2016-07-27 16:51] LABS: ADD URINE CULTURE YES; BACTERIA,URINE Many /HPF (None Seen); CLINITEST,URINE 1%; SQUAMOUS EPITHELIAL CELL,UR Moderate /HPF (None Seen); WBC,URINE 21-50 /HPF (0-3)
[2016-07-27] MEDS ORDERED: INSULIN REGULAR, HUMAN 100 UNIT/ML 10 ML VIAL ONE (17:00)
[2016-07-27] MEDS ORDERED: INSULIN REGULAR, HUMAN 100 UNIT/ML 10 ML VIAL SQ ONE (17:00)
--- NOTE | 2016-07-27 17:08 | NUR ---
REGULAR INSULIN, 8 UNITS GIVEN TO LLQ ABDOMEN. WITNESSED AND VERIFIED W/ BRENDA AGUILAR. SEE EMAR.
[2016-07-27] MEDS ORDERED: GABA-532 PO (17:09)
[2016-07-27] MEDS ORDERED: INSU100V3 SQ (17:09)
[2016-07-27] MEDS ORDERED: ACID1TAB12 PO (17:09)
[2016-07-27] MEDS ORDERED: MAG30ORA PO (17:09)
[2016-07-27] MEDS ORDERED: MULT-659 PO (17:09)
[2016-07-27] MEDS ORDERED: INSU100I19 SQ (17:09)
[2016-07-27] MEDS ORDERED: MAGN400O6 PO (17:09)
[2016-07-27] MEDS ORDERED: ZOLP5TAB7 PO (17:11)
[2016-07-27] MEDS ORDERED: HYDR-3326 PO (17:11)
[2016-07-27] MEDS ORDERED: ENOX30DI SQ (17:13)
--- NOTE | 2016-07-27 17:21 | NUR ---
REPORT GIVEN TO JFEF ESQUEDA FOR [facility] GPS 214G
[2016-07-27] MEDS ORDERED: SULFAMETH/TRIMETH 800/160 MG 1 UDTAB TABLET PO SCH (17:30)
[2016-07-27] MEDS ORDERED: NITROFURANTOIN/NITROFURAN MAC 100 MG CAPSULE ONE (17:49)
[2016-07-27] MEDS ORDERED: NITROFURANTOIN/NITROFURAN MAC 100 MG CAPSULE PO SCH (18:00)
--- NOTE | 2016-07-27 18:00 | NUR ---
JEFF Viveros made aware that Macrobid Antibiotic started in the ER.
--- NOTE | 2016-07-27 18:02 | NUR ---
NOTE Bactrim was not given to patient in the ER, only macrobid [address] Dunlap order. I was trying to undo but somehow I can't undo the Bactrim.
--- NOTE | 2016-07-27 18:30 | NUR ---
RN-CO: Paged Dr Horowitz for admitting orders, awaiting to call back. Dr Erlin Verduzco reviewed her home medications. Belongings were screened for contrabands. Patient refused to signed in all admitting papers and belongings form.
--- NOTE | 2016-07-27 18:54 | NUR ---
RN-CO: DR GOLD CALLED BACK AND GAVE ADMITTING ORDERS.WE WILL ENDORSE TO THE NEXT SHIFT.
--- NOTE | 2016-07-27 19:00 | NUR ---
admitted this 89 years old female, from SNF patient was placed on 5150 hold due to dangers to others, hitting the staff, agitated, patient refused to sign the consent, advisement explain and handed to patient with hospital policy and procedure , body assessment is done right big toe no nail wound, pic is taken and placed in chart. upon admission patient is anxious, blood sugar check was 242 Levemir 25 units administered as prescribed. will continues to monitor the patient for safety and fall.
[2016-07-27] MEDS ORDERED: MAG HYDROX/AL HYDROX/SIMETH 30 ML UDC PO PRN (19:30)
[2016-07-27] MEDS ORDERED: LORAZEPAM 0.5 MG TABLET PO PRN (19:30)
[2016-07-27] MEDS ORDERED: MAGNESIUM HYDROXIDE 30 ML UDC PO PRN (19:30)
[2016-07-27 20:00] VITALS: BP 136/65
[2016-07-27] MEDS: GABAPENTIN 100 MG CAPSULE PO SCH (20:59)
[2016-07-27] MEDS: SULFAMETH/TRIMETH 800/160 MG 1 UDTAB TABLET PO SCH (21:00)
[2016-07-27] MEDS: TEMAZEPAM 7.5 MG CAPSULE PO PRN (21:00)
[2016-07-27] MEDS: INSULIN DETEMIR 100 UNIT/ML CARTRIDGE SQ SCH (21:39)
[2016-07-28 07:55] LABS: ALBUMIN 2.8 g/dL (3.4-5.0); BILIRUBIN,TOTAL 0.4 mg/dL (0.2-1.0); CALCIUM, SERUM 9.2 mg/dL (8.5-10.1); CREATININE 0.8 mg/dL (0.6-1.3); POTASSIUM 4.4 mmol/L (3.5-5.1)
[2016-07-28 08:00] VITALS: BP_SYST 128; BP_SYST 92; BP_DIAS 50; BP_DIAS 54
[2016-07-28] MEDS: GABAPENTIN 100 MG CAPSULE PO SCH ×3 (08:50→17:00)
[2016-07-28] MEDS: ASPIRIN 81 MG TAB.CHEW PO SCH (08:50)
[2016-07-28] MEDS: SULFAMETH/TRIMETH 800/160 MG 1 UDTAB TABLET PO SCH ×2 (08:50→21:52)
[2016-07-28] MEDS ORDERED: DEXTROSE 50%-WATER 50 ML DISP.SYRIN IV PRN (11:30)
[2016-07-28] MEDS: BLOOD SUGAR DIAGNOSTIC 1 EACH STRIP IN SCH ×3 (12:05→21:45)
[2016-07-28] MEDS: ACETAMINOPHEN 325 MG TABLET PO PRN ×2 (12:33→15:08)
[2016-07-28] MEDS: QUETIAPINE FUMARATE 25 MG TABLET PO SCH ×2 (15:08→21:52)
--- NOTE | 2016-07-28 15:17 | NUR ---
GPS RN: PATIENT C/O RIGHT RIB AREA PAIN, ADMINISTERED TYLENOL 650MG PO. PATIENT ONLY TOOK ONE TABLET (325MG), REFUSED TO TAKE BOTH. NO S/S OF DISTRESS. FAMILY IS VISITING.
[2016-07-28 16:00] VITALS: BP 127/64
[2016-07-28] MEDS: MEMANTINE HCL 5 MG TABLET PO SCH (17:00)
[2016-07-28] MEDS: INSULIN REGULAR, HUMAN 100 UNIT/ML 3 ML VIAL SQ PRN (17:26)
[2016-07-28 20:00] VITALS: BP 110/70
[2016-07-28] MEDS: INSULIN DETEMIR 100 UNIT/ML CARTRIDGE SQ SCH (21:52)
--- NOTE | 2016-07-28 22:00 | NUR ---
RN NOTE HELD KELVIN VASQUEZ 90. WILL CONT TO MONITOR.
[2016-07-29 08:00] VITALS: BP 135/66
[2016-07-29] MEDS: GABAPENTIN 100 MG CAPSULE PO SCH ×3 (08:07→17:23)
[2016-07-29] MEDS: QUETIAPINE FUMARATE 25 MG TABLET PO SCH ×2 (08:07→21:50)
[2016-07-29] MEDS: MEMANTINE HCL 5 MG TABLET PO SCH ×2 (08:07→17:23)
[2016-07-29] MEDS: ASPIRIN 81 MG TAB.CHEW PO SCH (08:07)
[2016-07-29] MEDS: SULFAMETH/TRIMETH 800/160 MG 1 UDTAB TABLET PO SCH ×2 (08:07→21:50)
[2016-07-29] MEDS: BLOOD SUGAR DIAGNOSTIC 1 EACH STRIP IN SCH ×4 (08:07→21:35)
[2016-07-29] MEDS: INSULIN REGULAR, HUMAN 100 UNIT/ML 3 ML VIAL SQ PRN ×4 (08:09→21:36)
[2016-07-29 16:00] VITALS: BP 121/63
[2016-07-29] MEDS: NEOMY SULF/BACITRAC ZN/POLY 15 GM TUBE TP SCH (16:17)
--- NOTE | 2016-07-29 18:08 | NUR ---
GPS RN NOTE: WOUND TX DONE PER ORDER
[2016-07-29 20:05] VITALS: BP 125/58
[2016-07-29] MEDS: INSULIN DETEMIR 100 UNIT/ML CARTRIDGE SQ SCH (21:38)
[2016-07-30 08:00] VITALS: BP 111/60
[2016-07-30] MEDS: BLOOD SUGAR DIAGNOSTIC 1 EACH STRIP IN SCH ×4 (08:34→22:14)
[2016-07-30] MEDS: ASPIRIN 81 MG TAB.CHEW PO SCH (08:35)
[2016-07-30] MEDS: GABAPENTIN 100 MG CAPSULE PO SCH ×3 (08:35→17:06)
[2016-07-30] MEDS: SULFAMETH/TRIMETH 800/160 MG 1 UDTAB TABLET PO SCH ×2 (08:35→22:07)
[2016-07-30] MEDS: MEMANTINE HCL 5 MG TABLET PO SCH ×2 (08:35→17:06)
[2016-07-30] MEDS: QUETIAPINE FUMARATE 25 MG TABLET PO SCH ×2 (08:35→22:07)
[2016-07-30] MEDS: NEOMY SULF/BACITRAC ZN/POLY 15 GM TUBE TP SCH (08:47)
--- NOTE | 2016-07-30 10:22 | NUR ---
WOUND CARE CONSULT WOUND CONSULT RECEIVED, PATIENT HAS BEEN SEEN BY LEATHER SOFTENER ADEOLA PENNY AND THERE ARE WOUND TREATMENT ORDERS FOR PATIENT. PATIENT WITH ITALO AT 17, WOUND CARE WILL DEFER TO LEATHER SOFTENER AT THIS TIME.
[2016-07-30] MEDS: INSULIN REGULAR, HUMAN 100 UNIT/ML 3 ML VIAL SQ PRN ×3 (12:32→22:17)
--- NOTE | 2016-07-30 13:04 | NUR ---
Patient [facility] [address] [facility] [place] [address] ([phone]). environmental maintenance worker spoke to patient's grad-daughter who stated that she would like patient to return to [facility]. environmental maintenance worker spoke to Volodymyr from the facility who confirmed that patient is on a bed hold and can return when she is ready for discharge. environmental maintenance worker will help form a safe and proper discharge.
--- NOTE | 2016-07-30 13:54 | NUR ---
Psychosocial assessment was reviewed and I concur with the information provided. No changes are necessary. Jeremias Olvera, [facility] [id number] Addendum: 07/30/16 at 1404 by JEREMIAS OLVERA SW Amended: Links added.
[2016-07-30 15:38] VITALS: BP 100/63
[2016-07-30 16:33] VITALS: BP 100/69
[2016-07-30 19:41] VITALS: BP_SYST 125; BP_SYST 97; BP_DIAS 55; BP_DIAS 58
[2016-07-30] MEDS ORDERED: SULFAMETH/TRIMETH 800/160 MG 1 UDTAB TABLET PO ONE (21:25)
[2016-07-30] MEDS: INSULIN DETEMIR 100 UNIT/ML CARTRIDGE SQ SCH (22:19)
--- NOTE | 2016-07-31 07:00 | NUR ---
GPS RN NOTE: BLOOD SUGAR CHECKED AND WITH A RESULT OF 48. PATIENT AWAKE, ALERT AND ORIENTED X 1-2, YORUBA SPEAKING, NO SOB, NO ACUTE DISTRESS, BREATHING EVEN AND UNLABORED, NO S/S OF PAIN AND DISCOMFORT. ORANGE JUICE WITH SUGARS GIVEN AND PATIENT COOPERATED. OFFERED SNACK AND SANDWICH AND PATIENT REFUSED. WILL ENDORSE TO THE NEXT SHIFT TO RECHECK BLOOD SUGAR AFTER 30 MINS AND NOTIFY MD FOR THE EVALUATION OF THE MEDICATION. WILL CONTINUE TO MONITOR [id number] FOR SAFETY
[2016-07-31] MEDS: BLOOD SUGAR DIAGNOSTIC 1 EACH STRIP IN SCH ×4 (08:17→22:00)
[2016-07-31] MEDS: GABAPENTIN 100 MG CAPSULE PO SCH ×3 (08:19→17:00)
[2016-07-31] MEDS: QUETIAPINE FUMARATE 25 MG TABLET PO SCH ×2 (08:20→21:04)
[2016-07-31] MEDS: ASPIRIN 81 MG TAB.CHEW PO SCH (08:21)
[2016-07-31] MEDS: SULFAMETH/TRIMETH 800/160 MG 1 UDTAB TABLET PO SCH ×2 (08:21→18:08)
[2016-07-31] MEDS: MEMANTINE HCL 5 MG TABLET PO SCH ×2 (08:21→17:00)
[2016-07-31] MEDS: NEOMY SULF/BACITRAC ZN/POLY 15 GM TUBE TP SCH (08:22)
[2016-07-31 08:55] VITALS: BP 103/52
[2016-07-31 16:07] VITALS: BP 132/56
[2016-07-31] MEDS: INSULIN REGULAR, HUMAN 100 UNIT/ML 3 ML VIAL SQ PRN (17:45)
--- NOTE | 2016-07-31 19:25 | NUR ---
GPS RN NOTES RECEIVED IN THE DINING ROOM,CALM AND QUIET,SPEAK BRUNEIAN WITH LITTLE LUXEMBOURGISH.WILL CONTINUE TO MONITOR BEHAVIOR.
[2016-07-31 20:00] VITALS: BP 120/60
[2016-07-31 20:09] VITALS: BP 120/80
--- NOTE | 2016-07-31 21:00 | NUR ---
GPS RN NOTES NON COMPLIANT WITH MEDS,TRIED TO SPIT MEDS.
[2016-07-31] MEDS: TEMAZEPAM 7.5 MG CAPSULE PO PRN (21:10)
--- NOTE | 2016-07-31 21:30 | NUR ---
MS RN NOTES REFUSED BLOOD SUGAR CHECK,TRIED TO SCRATCH STEAM BOX OPERATOR ON THE ARM
[2016-07-31] MEDS: INSULIN DETEMIR 100 UNIT/ML CARTRIDGE SQ SCH (22:00)
[2016-08-01] MEDS: BLOOD SUGAR DIAGNOSTIC 1 EACH STRIP IN SCH ×4 (05:50→20:54)
[2016-08-01] MEDS: INSULIN REGULAR, HUMAN 100 UNIT/ML 3 ML VIAL SQ PRN ×4 (05:52→21:01)
--- NOTE | 2016-08-01 06:00 | NUR ---
GPS RN NOTES ACCU-CHECK BLOOD SUGAR CHECK 209,HUMULIN R 4 UNITS ADMINISTERED.WILL MONITOR FOR S/S OF HYPOGLYCEMIA
--- NOTE | 2016-08-01 07:40 | NUR ---
RELUCTANT TO TAKE CRUSHED MEDS IN AM.
[2016-08-01 08:34] VITALS: BP_SYST 110; BP_SYST 139; BP_DIAS 67; BP_DIAS 69
[2016-08-01] MEDS: ASPIRIN 81 MG TAB.CHEW PO SCH (09:02)
[2016-08-01] MEDS: QUETIAPINE FUMARATE 25 MG TABLET PO SCH ×2 (09:04→21:03)
[2016-08-01] MEDS: GABAPENTIN 100 MG CAPSULE PO SCH ×3 (09:04→17:15)
[2016-08-01] MEDS: SULFAMETH/TRIMETH 800/160 MG 1 UDTAB TABLET PO SCH (09:04)
[2016-08-01] MEDS: MEMANTINE HCL 5 MG TABLET PO SCH ×2 (09:04→17:15)
[2016-08-01] MEDS: NEOMY SULF/BACITRAC ZN/POLY 15 GM TUBE TP SCH (09:05)
--- NOTE | 2016-08-01 09:30 | NUR ---
SYED IN AM ON ROUNDS AND REFUSING MEDS. Addendum: 08/01/16 at 1818 by YAKELIN SCOTT RN ABOVE NOTE ON INCORRECT PT.
--- NOTE | 2016-08-01 09:57 | NUR ---
acid conditioning worker spoke to patient's grand-daughter Manuela ([phone]) who stated that she was the special effects person. Manuela wanted an update on the patient's condition and discharge plan. acid conditioning worker informed patient's grand-daughter of patient's discharge plan and Manuela was satisfied with the information given and was agreeable with the discharge plan.
[2016-08-01 16:00] VITALS: BP 109/65
--- NOTE | 2016-08-01 16:20 | NUR ---
DR. PEDERSON IN TO SEE PT.
--- NOTE | 2016-08-01 16:33 | NUR ---
deck worker informed Volodymyr (admissions) from [facility] [address] [place] [address] ([phone]) that patient will be returning to the facility tomorrow August 02, 2016. deck worker faxed updated clinicals to Volodymyr ( / ) upon his request.
--- NOTE | 2016-08-01 17:51 | NUR ---
DR. ZARATE, IN TO SEE PT.
--- NOTE | 2016-08-01 19:15 | NUR ---
GPS RN NOTES ON BED A/O 1-2,SPEAK EMIRATI ONLY,CALM AND QUIET,FAMILY MEMBERS AT BEDSIDE.ISOLATION PRECAUTION FOR ESBL URINE.FALL RISK PRECAUTION OBSERVED.CONTINUE WITH Q 15 MINUTES MONITORING.
[2016-08-01 20:12] VITALS: BP 108/97
[2016-08-01 20:33] VITALS: BP 108/97
[2016-08-01] MEDS: INSULIN DETEMIR 100 UNIT/ML CARTRIDGE SQ SCH (21:06)
--- NOTE | 2016-08-01 21:30 | NUR ---
GPS RN NOTES ACCU-CHECK BLOOD SUGAR CHECK 166,COVERED WITH 3 UNITS HUMULIN R PER SLIDING SCALE.LEVEMIR 25 UNITS HELD,BLOOD SUGAR EASILY GOES DOWN IN THE MORNING EVEN WITH SNACKS PROVIDED.
[2016-08-01] MEDS: TEMAZEPAM 7.5 MG CAPSULE PO PRN (22:33)
--- NOTE | 2016-08-01 22:33 | NUR ---
GPS RN NOTES C/O INSOMNIA,RESTORIL 7.5MG PO GIVEN,TAKEN WELL.WILL MONITOR HOURS OF SLEEP.
[2016-08-02] MEDS: BLOOD SUGAR DIAGNOSTIC 1 EACH STRIP IN SCH ×2 (05:00→12:07)
[2016-08-02 08:00] VITALS: BP 133/63
--- NOTE | 2016-08-02 08:39 | NUR ---
RN-CO: Dr. Lazo, coning machine operator for Dr Horowitz ordered to discontinue hold and discharge patient today to SNF. Patient was seen and examined by him this morning.
[2016-08-02] MEDS: GABAPENTIN 100 MG CAPSULE PO SCH ×2 (09:00→12:13)
[2016-08-02] MEDS: ASPIRIN 81 MG TAB.CHEW PO SCH (09:00)
[2016-08-02] MEDS: MEMANTINE HCL 5 MG TABLET PO SCH (09:00)
[2016-08-02] MEDS: QUETIAPINE FUMARATE 25 MG TABLET PO SCH (09:00)
[2016-08-02] MEDS: NEOMY SULF/BACITRAC ZN/POLY 15 GM TUBE TP SCH (10:02)
--- NOTE | 2016-08-02 11:47 | NUR ---
DR. CONNOR GAVE AN ORDER TO D/C HOLD AND D/C TO [facility]. PT. WITHOUT DISTRESS, DENIES SUICIDAL AND HOMICIDAL. DEBRA ZARATE SECURITY CHIEF MUSEUM MADE AWARE OF THE DISCHARGE AND SAID OK FOR DISCHARGE AND RECONCILED MEDS. BELONGINGS READY, PICTURES TAKEN FOR THE SKIN ISSUES AND PT. REFUSED TO SIGNED THE DISCHARGE PAPERS.
[2016-08-02] MEDS: INSULIN REGULAR, HUMAN 100 UNIT/ML 3 ML VIAL SQ PRN (12:09)
--- NOTE | 2016-08-02 13:06 | NUR ---
REPORT GIVEN TO REBECCA OVER THE FACILITY.
--- NOTE | 2016-08-02 13:27 | NUR ---
PT. LEFT THE UNIT VIA AMBULANCE WITH BELONGINGS AND DISCHARGE PAPERS WITH THE DAUGHTER. PT. TRANSPORTED VIA A GURNEY, LEFT WITHOUT DISTRESS AND ON STABLE CONDITION. V/S TAKEN: BP 137/64, ND 75, RR 18, TEMP. 18 AND OXYGEN SAT 97%.
--- NOTE | 2016-08-02 14:59 | NUR ---
Discharge Note: Patient was discharge to [facility] [address] [place] [address] ([phone]) via med response. Patient's grand-daughter Manuela ([phone]) was notified. Patient's daughter and grand-daughter were agreeable with the discharge plan. Patient was accompanied by her daughter. Patient's mood and affect were appropriate upon discharge. Patient denied suicidal and homicidal ideations. Facilitated info to IDT team who are in agreement with discharge arrangement. The multidisciplinary exitcare form was done, printed, signed, and given to the patient.
== END 2016-08-02 13:27 | DRG 885 ==
LOC: ER 16:07 → GPS 17:02
PROVIDERS: ADMIT Psychiatry & Neurology Psychosomatic Medicine; ATTEND Nurse Practitioner Acute Care
DX: F29 Unspecified psychosis not due to a substance or known physiological condition (principal); F02.80 Dementia in other diseases classified elsewhere, unspecified severity, without behavioral disturbance, psychotic disturbance, mood disturbance, and anxiety; E11.65 Type 2 diabetes mellitus with hyperglycemia; G93.40 Encephalopathy, unspecified; N39.0 Urinary tract infection, site not specified; E78.5 Hyperlipidemia, unspecified; I25.10 Atherosclerotic heart disease of native coronary artery without angina pectoris; G30.9 Alzheimer's disease, unspecified; F01.50 Vascular dementia, unspecified severity, without behavioral disturbance, psychotic disturbance, mood disturbance, and anxiety; F32.9 Major depressive disorder, single episode, unspecified; F41.9 Anxiety disorder, unspecified; I10 Essential (primary) hypertension; Z87.440 Personal history of urinary (tract) infections; E11.40 Type 2 diabetes mellitus with diabetic neuropathy, unspecified; S91.201A Unspecified open wound of right great toe with damage to nail, initial encounter; X58.XXXA Exposure to other specified factors, initial encounter; Y92.9 Unspecified place or not applicable
CPT/HCPCS: 36415; 80048-TC; 80053-TC; 80061-TC; 80076-TC; 81000-TC; 82962-TC; 84443-TC; 84484-TC; 85025-TC; 87081-TC; 87086-TC; 87186-TC; 97001-TC; 97110-TC; 97530-TC; A4606; G0480; J1815; Z7610